=== PATIENT | female | born 1950 | race Caucasian/White ===

== ENCOUNTER 2016-05-12 14:01 | Emergency (ER) ==
[2016-05-12 14:10] VITALS: BP 112/84; TEMP 99.3; BMI 37.2
--- NOTE | 2016-05-12 14:58 | CT ---
EXAM: CT of the head without contrast History: Dizziness. Technique: Multiplanar CT images through the head were obtained without the administration of IV co ntrast Findings: The visualized paranasal sinuses and mastoid air cells are clear in general. No acute ca lvarial abnormalities. Incidental hyperostosis frontalis. Developmental nonfusion of the posterior arches C1. Tiny punctate calcification seen within the subcutaneous soft tissues of the right eyeli d. Intracranially the ventricular and cisternal spaces are normal in size, shape and configuration for a patient of this age. No dominant mass or midline shift. No hydrocephalous. No acute intracrania l hemorrhage or abnormal extraaxial fluid collections. Impression: No acute intracranial process.
--- NOTE | 2016-05-12 15:00 | DI ---
EXAM: Two views of the chest. History: Cough. Comparison: Chest radiograph 03/21/2016 Findings: Heart size is normal. No focal consolidation. No appreciable pleural fluid and no pneum othorax. Surgical clips are again seen within the left axilla. No acute osseous abnormalities. Impression: No acute cardiopulmonary process.
[2016-05-12 15:03] LABS: BASOPHILS # (AUTO) 0.1 K/uL (0-0.2); BASOPHILS % (AUTO) 0.9 % (0.0-3.0); EOSINOPHILS # (AUTO) 0.3 K/ul (0.0-0.7); EOSINOPHILS % (AUTO) 3.2 % (0.0-7.0); HEMATOCRIT 37.5 % (37.0-47.0); HEMOGLOBIN 12.3 g/dl (12.0-16.0); IMMATURE GRANULOCYTE % (AUTO) 0.9 % (0.0-5.0); LYMPHOCYTES # (AUTO) 2.5 K/uL (0.60-3.4); LYMPHOCYTES % (AUTO) 29.3 (10.0-50.0); MEAN CORPUSCULAR HEMOGLOBIN 30.1 pg (27.0-31.0); MEAN CORPUSCULAR HGB CONC 32.8 (31.8-35.4); MEAN CORPUSCULAR VOLUME 91.9 fl (81.0-99.0); MONOCYTES # (AUTO) 0.4 K/uL (0.4-2.0); NEUTROPHILS # (AUTO) 5.2 K/ul (2.0-6.9); NEUTROPHILS % (AUTO) 60.7; PLATELET COUNT 310 10^3/uL (140-440); RED BLOOD COUNT 4.08 10^6/ul (4.20-5.40); WHITE BLOOD COUNT 8.56 K/ul (4.6-10.2)
[2016-05-12 15:10] LABS: FLU INTERNAL QC INTERNAL QC VALID; RAPID FLU A NEGATIVE (NEGATIVE); RAPID FLU B NEGATIVE (NEGATIVE)
[2016-05-12] MEDS ORDERED: ANTIVERT PO STA (15:26)
[2016-05-12] MEDS ORDERED: DECADRON 4 MG/ML SDV IM STA (15:26)
[2016-05-12 15:45] LABS: ALANINE AMINOTRANSFERASE 22 U/L (12-78); ALBUMIN 3.8 g/dL (3.4-5.0); ALBUMIN/GLOBULIN RATIO 1.12; ALKALINE PHOSPHATASE 87 U/L (53-141); ANION GAP 18.6; ASPARTATE AMINO TRANSFERASE 17 U/L (15-37); BILIRUBIN,TOTAL 0.66 mg/dL (0.00-1.20); BLOOD UREA NITROGEN 27 mg/dL (7-18); BUN/CREATININE RATIO 30.68; CALCIUM 10.4 mg/dL (8.2-10.2); CARBON DIOXIDE 24 mmol/L (23-31); CHLORIDE 104 mmol/L (98-107); CREATINE KINASE 48 U/L; CREATININE 0.88 mg/dL (0.60-1.30); GLUCOSE 153 mg/dL (82-115); POTASSIUM 3.6 mmol/L (3.5-5.10); SODIUM 143 mmol/L (136-145); TOTAL PROTEIN 7.2 g/dL (5.8-8.1)
[2016-05-12 16:01] LABS: BILIRUBIN,URINE Negative (NEGATIVE); KETONES,URINE Negative (NEGATIVE); LEUKOCYTE ESTERASE ,URINE 1+ (NEGATIVE); NITRITE,URINE Negative (NEGATIVE); PROTEIN,URINE Negative (NEGATIVE); URINE, BLOOD Negative (NEGATIVE)
[2016-05-12 16:02] LABS: ADD URINE MICROSCOPIC YES; BACTERIA,URINE TRACE (NOT PRESENT)
--- NOTE | 2016-05-12 16:06 | ED.PDOC ---
General ED Provider: Dr. AVIS SILVEIRA Chief Complaint: Dizziness Stated Complaint: dizziness Time Seen by Physician: 14:04 (dizziness no neuro deficits ) Mode of Arrival: Wheelchair Information Source: Patient, Family Exam Limitations: No limitations Primary Care Provider: ZAY MOREJON Nursing and Triage Documentation Reviewed and Agree: Yes (PMD ALSO SAW PT IN E/ D PT WAS SEEN WITH SUSANNAH AT ALL TIMES ) Neurological Complaint Exam - Dizziness Complaint/Exam Last Known Well: 1 DAY Duration: 1 DAY Symptoms Are: Still present Timing: Constant Episodes Lasting: Hours Initial Severity: Mild Current Severity: Mild Character: Reports: Lightheaded, Dizzy Aggravating: Reports: None Alleviating: Reports: None Associated Signs and Symptoms: Denies: Nausea, Vomiting, Diaphoresis, Tinnitus, Chest pain, Short of air, Palpitations, Unsteady gait, GI blood loss, Visual changes, Decreased oral intake, Change in medication, Change in diet, OTC meds, Loss of balance Related History: Similar episode Cardiac Risk Factors: Reports: Hypertension, Diabetes CVA Risk Factors: Reports: Diabetes, Hypertension Related Surgical History: Reports: None JVD Present: No Carotid Bruit Present: No Rectal Heme Positive: No Glascow Coma Scale (see protocol): 15 Nystagmus Present: No Gag Reflex Present: Yes Meningeal Signs Positive: No Focal Weakness: Present: None Focal Sensory Loss: Present: None Gait: Normal Heel to Toe Normal: No [place]-Hallpike Test Positive: No Differential Diagnoses: Dysrhythmia, Hypovolemia, Metabolic abnormalities, Vasovagal reaction Quality Indicators for Cardiac Chest Pain: EKG in 10min. Quality Indicators for AMI: EKG in 10min. Quality Indicator For Non-Traumatic Chest Pain/Syncope: EKG Performed Review of Systems - Review Of Systems Constitutional: Reports: No symptoms Eyes: Reports: No symptoms Ears, Nose, Mouth, Throat: Reports: No symptoms Respiratory: Reports: No symptoms Cardiac: Reports: No symptoms GI: Reports: No symptoms : Reports: No symptoms Musculoskeletal: Reports: No symptoms Skin: Reports: No symptoms Neurological: Reports: Other (DIZZINESS) Endocrine: Reports: No symptoms Hematologic/Lymphatic: Reports: No symptoms All Other Systems: Reviewed and Negative Past Medical History - Past Medical History Previously Healthy: No Endocrine: Reports: DM 2 Cardiovascular: Reports: Hypertension Respiratory: Reports: None Hematological: Reports: None Gastrointestinal: Reports: None Genitourinary: Reports: None Neuro/Psych: Reports: None Musculoskeletal: Reports: None Cancer: Reports: None Last Menstrual Period: NA - Surgical History General Surgical History: Reports: None - Family History Family History: Reports: None - Social History Smoking Status: Never smoker Hx Substance Use: No Alcohol Screening: Occasionally Physical Exam - Physical Exam Appearance: Well-appearing, No pain distress, Well-nourished Eyes: ZACH, EOMI, Conjunctiva clear ENT: Ears normal, Nose normal, Oropharynx normal Respiratory: Airway patent, Breath sounds clear, Breath sounds equal, Respirations nonlabored Cardiovascular: RRR, Pulses normal, No rub, No murmur GI/: Soft, Nontender, No masses, Bowel sounds normal, No Organomegaly Musculoskeletal: Normal strength, ROM intact, No edema, No calf tenderness Skin: Warm, Dry, Normal color Neurological: Sensation intact, Motor intact, Reflexes intact, Cranial nerves intact, Alert, Oriented Psychiatric: Affect appropriate, Mood appropriate Critical Care Note - Critical Care Note Total Time (mins): 0 Course - Course Hematology/Chemistry: 05/12/16 14:50 05/12/16 14:50 Orders, Labs, Meds: Lab Review 05/12/16 05/12/16 14:50 15:55 WBC 8.56 RBC 4.08 L Hgb 12.3 Hct 37.5 MCV 91.9 MCH 30.1 MCHC 32.8 RDW Coeff of Annabelle 13.8 Plt Count 310 Immature Gran % (Auto) 0.9 Neut % (Auto) 60.7 Lymph % (Auto) 29.3 [place] % (Auto) 5.0 Eos % (Auto) 3.2 Baso % (Auto) 0.9 Immature Gran # (Auto) 0.1 Neut # 5.2 Lymph # 2.5 [place] # 0.4 Eos # 0.3 Baso # 0.1 D-Dimer 0.45 Sodium 143 Potassium 3.6 Chloride 104 Carbon Dioxide 24 Anion Gap 18.6 BUN 27 H Creatinine 0.88 Estimated GFR (MDRD) 64.00 BUN/Creatinine Ratio 30.68 Glucose 153 H Lactic Acid 17.8 Calcium 10.4 H Total Bilirubin 0.66 AST 17 ALT 22 Alkaline Phosphatase 87 Total Creatine Kinase 48 Troponin I < 0.0100 B-Natriuretic Peptide < 10 Total Protein 7.2 Albumin 3.8 Globulin 3.4 Albumin/Globulin Ratio 1.12 TSH 2.130 Free T4 1.01 Urine Color Yellow Urine Clarity Clear Urine pH 6.0 Ur Specific [place] 1.020 Urine Protein Negative Urine Glucose (UA) Negative Urine Ketones Negative Urine Blood Negative Urine Nitrite Negative Urine Bilirubin Negative Urine Urobilinogen 0.2 Ur Leukocyte Esterase 1+ Urine Microscopic WBC 0-2 Ur Squamous Epith Cells 0-2 Urine Bacteria Trace Influenza A (Rapid) Negative Influenza B (Rapid) Negative Orders Category Date Time Status EKG-(ED ONLY) Stat CARDIO 05/12/16 14:23 Completed B-TYPE NATRIURETIC PEPTIDE Stat LAB 05/12/16 14:50 Completed BLOOD CULTURE Stat LAB 05/12/16 14:50 Received CBC W/ AUTO DIFF Stat LAB 05/12/16 14:50 Completed COMPREHENSIVE METABOLIC PANEL Stat LAB 05/12/16 14:50 Completed CREATINE KINASE Stat LAB 05/12/16 14:50 Completed D-DIMER Stat LAB 05/12/16 14:50 Completed FREE T4 (FREE THYROXINE) Stat LAB 05/12/16 14:50 Completed LACTIC ACID Stat LAB 05/12/16 14:50 Completed RAPID FLU A/B Stat LAB 05/12/16 14:50 Completed THYROID STIMULATING HORMONE Stat LAB 05/12/16 14:50 Completed TROPONIN I Stat LAB 05/12/16 14:50 Completed URINALYSIS C & S IF INDICATED Stat LAB 05/12/16 15:55 Completed Dexamethasone 4 mg/ml Inj [Decadron 4 mg/ml Sdv] MEDS 05/12/16 15:26 Discontinued 4 mg IM ONCE STA Meclizine HCl [Antivert] MEDS 05/12/16 15:26 Discontinued 25 mg PO ONCE STA CHEST, 2 VIEWS PA & LAT Stat RADS 05/12/16 14:[address] HEAD W/O CONTRAST Stat RADS 05/12/16 14:31 Completed Medications Discontinued Medications Generic Name Dose Route Start Last Admin Trade Name Freq PRN Reason Stop Dose Admin Dexamethasone Sodium Phosphate 4 mg 05/12/16 15:26 05/12/16 15:33 Decadron 4 Mg/Ml Sdv IM 05/12/16 15:27 4 mg ONCE STA Administration Meclizine HCl 25 mg 05/12/16 15:26 05/12/16 15:33 Antivert PO 05/12/16 15:27 25 mg ONCE STA Administration Vital Signs: Temp Pulse Resp BP Pulse Ox 05/12/16 14:04 99.3 F 92 H 18 112/84 95 Departure - Departure Time of Disposition: 16:07 Disposition: HOME SELF-CARE Discharge Problem: Dizziness, Dizziness Instructions: Vertigo (ED), Benign Paroxysmal Positional Vertigo (ED), Lightheadedness (ED), Dizziness (ED) Condition: Good Pt referred to PMD for follow-up: Yes (PMD SAW PT IN E/D ) Allergies/Adverse Reactions: Allergies No Known Allergies Allergy (Unverified 05/12/16 14:03) Home Medications: Ambulatory Orders Albuterol Sulfate [Proair Hfa] 2 puff IH Q4H PRN 05/12/16 Budesonide/Formoterol Fumarate [Symbicort 160-4.5 Mcg Inhaler] 2 puff IH BID Diclofenac Sodium [Voltaren 1% Gel] 1 gm TP DAILY 05/12/16 Duloxetine HCl [Cymbalta] 60 mg PO BEDTIME 05/12/16 Hydrocodone Bit/Acetaminophen [Mcclure 5-325] 5 tab PO BID PRN 05/12/16 Ibuprofen 800 mg PO TID PRN 05/12/16 Levothyroxine Sodium [Levo-T] 25 mcg PO DAILY 05/12/16 Losartan Potassium [Cozaar] 25 mg PO DAILY 05/12/16 Metformin HCl 1,000 mg PO DAILY 05/12/16 Simvastatin 20 mg PO DAILY 05/12/16 Triamterene/Hydrochlorothiazid [Maxzide 37.5 mg-25 mg Tablet] 1 each PO DAILY Disposition Discussed With: Patient, Family
== END 2016-05-12 16:27 | disposition home or self-care (01) ==
LOC: ED 14:01
DX: R42 Dizziness and giddiness (principal); I10 Essential (primary) hypertension; E11.9 Type 2 diabetes mellitus without complications; Z79.899 Other long term (current) drug therapy
CPT/HCPCS: 36415; 80053; 81001; 82550; 83605; 83880; 84439; 84443; 84484; 85025; 85379; 87040; 87804; 93005; 93010; 96372; 99283

== ENCOUNTER 2016-06-07 11:16 | Outpatient (CLI) | payer OTHER ==
--- NOTE | 2016-06-07 14:18 | DI ---
EXAM: Lumbar spine five views HISTORY: Lumbar facet joint arthropathy. FINDINGS / IMPRESSION: No comparison. Subtle scoliosis convex right. Sacroiliac joints within normal limits. No pars defect. Moderately severe diffuse facet arthropathy. No loss of vertebral body height. No spondylolisthesis. Moderate degenerative disc disease L4-S1. No acute fracture.
== END 2016-06-07 11:17 | disposition home or self-care (01) ==
LOC: RAD 11:16
PROVIDERS: ATTEND Pain Medicine Interventional Pain Medicine
DX: M51.26 Other intervertebral disc displacement, lumbar region (principal); M47.816 Spondylosis without myelopathy or radiculopathy, lumbar region; M47.817 Spondylosis without myelopathy or radiculopathy, lumbosacral region; M48.06 Spinal stenosis, lumbar region; M51.36 Other intervertebral disc degeneration, lumbar region; M51.37 Other intervertebral disc degeneration, lumbosacral region

== ENCOUNTER 2016-08-16 09:00 | Outpatient (RCR) ==
--- NOTE | 2016-08-08 13:59 | RS.OPPTEV2 ---
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 Pain progressively worsenend until the need arose for shoulder surgery. She reports left shoulder will be needing surgery probably in a year. Prior Level of Function.....Patient was independent with: ADL's, Self Care, Caregiving, Ambulation/Mobility, Community Integration/Access Functional Limitations: Sleep, Self Care, ADL's, Reaching, Pushing, Pulling, Lifting, Carrying, Sitting, Bending, Squatting, Community Access/Integration Current Subjective/complaints:: Patient reports wearing her sling since surgery. She reports tingling and pain into the 5th digit and numbness in the 4th digit of the right hand since surgery. States she received Home Health PT up until a few days ago. States she is able to sleep in bed. She is taking pain medication, which helps. Also has iced the shoulder. States she would also like to get some exercise for the left shoulder since she will be having surgery on it eventually. Treatment Side (optional): Right Medical History Medical History Comments:: History of Carpal Tunnel syndrome in right wrist/hand Surgical History: Mastectomy (with complete lymph node removal, Left 2008) Surgical History Comments:: Left Breast reconstruction 2008 Smoking Status: Former smoker Hx Home Medications: Hydrocodone, cymbalta, metformin, synthroid, cozaar, zofran , zocor Patient's Goals: Her goal is to regain functional use of the right UE. Pain Assessment - Pain Description Pain Location: Right shoulder Pain Description: Aching Current Pain Intensity: 5/10 Worst Pain Intensity: 7/10 Functional Outcome Measure UE Functional Index: 14 (1480=82.5% impairment) - G Codes & Severity Modifier G Codes & Modifier: Selfcare current CM. Selfcare Goal CJ Source of G Code score: UE functional scale Observation - Observation Inspection: Patient presents to department with sling to right shoulder. Presents with one incision approximately 4 inches in length along the anterior region of the shoulder joint, that is free of sutures or megan. Patient states incision is glued. Posture: Forward Head, Rounded Shoulders Handedness: Right - Left Shoulder ROM Comments: Left AROM WFL's. - Right Shoulder ROM Comments: Passive right shoulder flexion to 100 degrees, scaption to 90 degrees , ER to 40 degrees. Right elbow and wrist AROM WFL's. - Right Shoulder Strength Comments: Right shoulder strength no tested at this time. Elbow 4/5, wrist 4/5. Boot And Shoe Repairman Strength Left Hand Boot And Shoe Repairman Strength: 45 lbs. Right Hand Boot And Shoe Repairman Strength: 22 lbs. Dynamometer Testing Position: 2nd Position Sensation - Sensation Comments: Patient reports tingling into the 5th digit in the right hand and numbness into the 4th digit. Interventions - Exercise/Activities/Manual Therapy Exercises/Activities: Patient received PROM in supine into right shoulder flexion, abduction, and ER in pain-free range. Performed Active right elbow and wrist ROM. Patient instructed in HEP of Pendulum exercises, scapular retraction, active elbow and wrist ROM. Total minutes of Exercise: X 18 mins Manual Therapy: NA HOME EXERCISE PROGRAM: Pendulum exercises, scapular retraction, active elbow and wrist ROM. - Charges Total Direct Minutes: 55 mins Total Treatment Time: 55 mins Procedures billed for this date of service:: Yudelka Eubanks Assessment Assessment: Patient presents two weeks s/p right Reverse TSR. She is right hand dominant and is unable to use the right UE for any selfcare or ADL's. She demonstrates limited Passive and Active ROM, post-surgical pain and swelling, and limited strength. She will benefit from appropriately progressed exercises and activities to enable her to regain functional use of the right UE. Patient Education: Education of diagnosis, Body/Joint mechanics, Home Exercise Program, Home Safety, Activity Modification, Education of Plan of Care Rehab Potential: Good Short Term Goals Goal #1: Pt independent and compliant with HEP. Goal to be met by: 08/22/16 Goal #2: Right shoulder PROM WFL's. Goal to be met by: 08/22/16 Goal #3: Pt to demonstrate improved postural awareness. Goal to be met by: 08/22/16 Clinical Physician Assistant Goals Goal #1: Pt knows HEP and to continue Ex's to maintain functional level at D/C. Goal to be met by: 10/07/16 Goal #2: Right shoulder AROM WFL's to perform all selfcare and ADL's. Goal to be met by: 10/07/16 Goal #3: Score on UE functional scale improved to <39% impairment. Goal to be met by: 10/07/16 Goal #4: Patient able to use Right UE for daily activities with minimal to no pain. Goal to be met by: 10/07/16 Plan - Treatment to be Provided Procedures: Therapeutic Exercises, Therapeutic Activity, Patient Education Modalities: Cryotherapy - Treatment Plan Frequency: 3 X week Duration: 8 weeks ORDER # VISITS AND/OR THROUGH DATE: 10/07/16 - Treatment Code (1) Shoulder pain Qualifiers: Laterality: right Chronicity: acute Qualified Description: Acute pain of right shoulder Qualifier Code(s): (M25.511) Pain in right shoulder (2) Shoulder stiffness Qualifiers: Laterality: right Qualified Description: Stiffness of shoulder joint, right Qualifier Code(s): (M25.611) Stiffness of right shoulder, not elsewhere classified (3) Aftercare following joint replacement surgery Qualifiers: Joint replacement surgery site: shoulder Laterality: right Qualified Description: Aftercare following right shoulder joint replacement surgery Qualifier Code(s): (Z47.1) Aftercare following joint replacement surgery, (Z96.611) Presence of right artificial shoulder joint
--- NOTE | 2016-08-12 09:56 | RS.CXNS ---
Date of scheduled appointment: 08/12/16 Type: Cancel (Patient called to cancel appointment today due to car trouble. Scheduled for appointments later this week.)
--- NOTE | 2016-08-14 10:55 | RS.OPPTDN ---
Subjective Date of Note: 08/14/16 Visit #: 2 Date of Evaluation: 08/08/16 Payer Source: MEDICARE Treatment Diagnosis: Right shoulder pain, right shoulder stiffness, s/p Right Reverse TSR Current Subjective/complaints:: Patient reports stiffness right shoulder but pain is "not too bad today". States she has mod to high back pain which is limiting her mobility. Pain Assessment - Pain Description Pain Location: Right shoulder Pain Description: Aching Current Pain Intensity: 3/10 - Heat/Cryotherapy Treatment: Hot Pack ([id number] to the right shoulder prior to EX. Patient in supine. ) Interventions - Exercise/Activities/Manual Therapy Exercises/Activities: [id number] Patient received PROM in supine into right shoulder flexion, scaption, abduction, and limited IR and ER in pain-free range. Isometrics for biceps, triceps, IR, ER, shoulder add and extension. Active right elbow and wrist ROM. Scapular retraction and elevation with support to right UE. In sitting, cervical lateral flexion stretching, scap retraction and shoulder shrugs. Codmans and began limited active flexion to start cuff series. Reviewed dx, shoulder mechancis, HEP, and safety precautions. Patient given copies of new exercises. Total minutes of Exercise: 40mins Manual Therapy: NA HOME EXERCISE PROGRAM: Pendulum exercises, scapular retraction, active elbow and wrist ROM. Isometric shoulder add and ext in neutral. - Charges Total Direct Minutes: 40mins Total Treatment Time: 60mins Procedures billed for this date of service:: HP, EX3 Assessment: Patient tolerates PROM and progressive exercises well. She appears motivated to progress. Patient Education: Education of diagnosis, Body/Joint mechanics, Home Exercise Program, Home Safety, Activity Modification Patient demonstrates compliance with HEP?: Yes Short Term Goals Goal #1: Pt independent and compliant with HEP. Goal to be met by: 08/22/16 Progress towards Goal:: Progressing Goal #2: Right shoulder PROM WFL's. Goal to be met by: 08/22/16 Progress towards Goal:: Progressing Goal #3: Pt to demonstrate improved postural awareness. Goal to be met by: 08/22/16 Snf Goals Goal #1: Pt knows HEP and to continue Ex's to maintain functional level at D/C. Goal to be met by: 10/07/16 Goal #2: Right shoulder AROM WFL's to perform all selfcare and ADL's. Goal to be met by: 10/07/16 Goal #3: Score on UE functional scale improved to <39% impairment. Goal to be met by: 10/07/16 Goal #4: Patient able to use Right UE for daily activities with minimal to no pain. Goal to be met by: 10/07/16 Plan PLAN OF CARE EXPIRES ON:: 10/07/16 ORDER # VISITS AND/OR THROUGH DATE: 10/07/16 PLAN: Continue Plan of Care
--- NOTE | 2016-08-16 12:07 | RS.OPPTDN ---
Subjective Date of Note: 08/16/16 Visit #: 3 Date of Evaluation: 08/08/16 Payer Source: MEDICARE Treatment Diagnosis: Right shoulder pain, right shoulder stiffness, s/p Right Reverse TSR Current Subjective/complaints:: Patient reports mild soreness following last session, but feels like ROM is better. Pain Assessment - Pain Description Pain Location: Right shoulder Pain Description: Aching Current Pain Intensity: 3/10 - Heat/Cryotherapy Treatment: Hot Pack ([id number] to right shoulder prior to EX. Patient in supine. ) Interventions - Exercise/Activities/Manual Therapy Exercises/Activities: [id number] Patient received PROM in supine into right shoulder flexion, scaption, abduction, and limited IR and ER in pain-free range. Isometrics for biceps, triceps, IR, ER, shoulder adduction, extension, and abduction. Active right elbow and wrist ROM. Scapular retraction and elevation with support to right UE. AAROM into flexion with clasped hands. Began wand for chest press, short range flexion, and IR/ER in supine. In sitting , scap retraction and shoulder shrugs. Reviwed Codmans and short cuff series. Reviewed dx, shoulder mechancis, HEP, and safety precautions. Patient given copies of new exercises. Total minutes of Exercise: 42mins Manual Therapy: NA HOME EXERCISE PROGRAM: Pendulum exercises, scapular retraction, active elbow and wrist ROM. Isometric shoulder add and ext in neutral. Wand for chest press , short overhead flexion, and IR/ER in supine. Clasped hands for shoulder flexion from 90 degrees to overhead in supine. - Charges Total Direct Minutes: 42mins Total Treatment Time: 62mins Procedures billed for this date of service:: HP, EX3 Assessment: Patient progressing well with ROM and gentle strengthening. Patient will need to be conservative with progression of exercise. Patient Education: Education of diagnosis, Body/Joint mechanics, Home Exercise Program, Home Safety, Activity Modification Patient demonstrates compliance with HEP?: Yes Short Term Goals Goal #1: Pt independent and compliant with HEP. Goal to be met by: 08/22/16 Progress towards Goal:: Progressing Goal #2: Right shoulder PROM WFL's. Goal to be met by: 08/22/16 Progress towards Goal:: Progressing Goal #3: Pt to demonstrate improved postural awareness. Goal to be met by: 08/22/16 Progress towards Goal:: Progressing Delivery Consultant Goals Goal #1: Pt knows HEP and to continue Ex's to maintain functional level at D/C. Goal to be met by: 10/07/16 Goal #2: Right shoulder AROM WFL's to perform all selfcare and ADL's. Goal to be met by: 10/07/16 Goal #3: Score on UE functional scale improved to <39% impairment. Goal to be met by: 10/07/16 Goal #4: Patient able to use Right UE for daily activities with minimal to no pain. Goal to be met by: 10/07/16 Plan PLAN OF CARE EXPIRES ON:: 10/07/16 ORDER # VISITS AND/OR THROUGH DATE: 10/07/16 PLAN: Continue Plan of Care
== END 2016-08-18 ==
PROVIDERS: ATTEND Orthopaedic Surgery
DX: M12.811 Other specific arthropathies, not elsewhere classified, right shoulder (principal)

== ENCOUNTER 2016-08-23 10:11 | Outpatient (CLI) ==
--- NOTE | 2016-08-23 10:58 | DI ---
EXAM: Radiographs, right knee HISTORY: Bilateral knee pain. COMPARISON: None available. TECHNIQUE: Two views. FINDINGS: Bone mineralization is normal. There is no fracture or dislocation. Mild medial compart ment joint space narrowing noted. Small marginal osteophytes present in the patellofemoral compartm ent. No focal soft tissue abnormality is seen. IMPRESSION: Mild osteoarthritis.
--- NOTE | 2016-08-23 10:58 | DI ---
EXAM: Two views of the left knee. History: Left knee pain. Findings: No acute fracture or dislocation. Joint spaces are relatively preserved. No abnormal ca lcifications or radiopaque foreign bodies. There is a tiny superior patellar osteophyte. Impression: No acute osseous abnormality and no significant degenerative joint disease.
== END 2016-08-23 10:12 | disposition home or self-care (01) ==
LOC: RAD 10:11
PROVIDERS: ATTEND Pain Medicine Interventional Pain Medicine
DX: M25.562 Pain in left knee (principal); M25.561 Pain in right knee; M12.811 Other specific arthropathies, not elsewhere classified, right shoulder

== ENCOUNTER 2016-09-09 10:28 | Outpatient (CLI) ==
[2016-09-09 11:04] LABS: BILIRUBIN,DIRECT 0.24 mg/dL (0.00-0.30); BILIRUBIN,TOTAL 0.7 mg/dL (0.00-1.20); TOTAL PROTEIN 7.1 g/dL (5.8-8.1)
[2016-09-11 08:31] LABS: ANION GAP 20.7; BUN/CREATININE RATIO 26.73; CALCIUM 10.2 mg/dL (8.2-10.2); CREATININE 1.01 mg/dL (0.60-1.30); POTASSIUM 3.7 mmol/L (3.5-5.10)
[2016-09-11 08:34] LABS: ALBUMIN 4.1 g/dL (3.4-5.0); ALBUMIN/GLOBULIN RATIO 1.37
== END 2016-09-09 10:29 | disposition home or self-care (01) ==
LOC: LAB 10:28
PROVIDERS: ATTEND Pain Medicine Interventional Pain Medicine
DX: Z51.81 Encounter for therapeutic drug level monitoring (principal); Z79.891 Long term (current) use of opiate analgesic; F19.20 Other psychoactive substance dependence, uncomplicated; M12.811 Other specific arthropathies, not elsewhere classified, right shoulder
CPT/HCPCS: 36415; 80053; 80076; 82248; 84100

== ENCOUNTER 2016-09-17 09:00 | Outpatient (RCR) ==
--- NOTE | 2016-08-20 11:25 | RS.OPPTDN ---
Subjective Date of Note: 08/20/16 Visit #: 4 Date of Evaluation: 08/08/16 Payer Source: MEDICARE Treatment Diagnosis: Right shoulder pain, right shoulder stiffness, s/p Right Reverse TSR Current Subjective/complaints:: Patient reports she feels she is progressing with HEP and has improved strength slightly with isometric IR of right shoulder. Reports using right UE to assist with limited grooming. Pain Assessment - Pain Description Pain Location: Right shoulder Current Pain Intensity: 3/10 - Heat/Cryotherapy Treatment: Hot Pack ([id number] to the right shoulder prior to EX. Patient in supine. ) Interventions - Exercise/Activities/Manual Therapy Exercises/Activities: [id number] Patient received PROM in supine into right shoulder flexion, scaption, abduction, and limited IR and ER in pain-free range. Isometrics for biceps, triceps, IR, ER, shoulder flexion, adduction, extension, and abduction. Active right elbow and wrist ROM. AAROM into flexion with clasped hands. Increased to 3# wand for chest press. Light wand for short range flexion, ER with shoulders at 90degrees with support to right UE, and IR/ ER with arms at side, all in supine. In sitting, scap retraction and shoulder shrugs. Began UE slides for forward flexion and short horizontal abd. Codmans and advanced AROM with cuff series. Reviewed dx, shoulder mechancis, HEP, and safety precautions. Patient given copies of new exercises added today. Total minutes of Exercise: 45mins Manual Therapy: NA HOME EXERCISE PROGRAM: Pendulum exercises, scapular retraction, active elbow and wrist ROM. Isometric shoulder add and ext in neutral. Wand for chest press , short overhead flexion, and IR/ER in supine. Clasped hands for shoulder flexion from 90 degrees to overhead in supine. - Charges Total Direct Minutes: 45mins Total Treatment Time: 65mins Procedures billed for this date of service:: HP, EX3 Assessment: Patient continues to progress with exercise. Patient Education: Education of diagnosis, Body/Joint mechanics, Home Exercise Program, Home Safety Patient demonstrates compliance with HEP?: Yes Short Term Goals Goal #1: Pt independent and compliant with HEP. Goal to be met by: 08/22/16 Progress towards Goal:: Progressing Goal #2: Right shoulder PROM WFL's. Goal to be met by: 08/22/16 Progress towards Goal:: Progressing Goal #3: Pt to demonstrate improved postural awareness. Goal to be met by: 08/22/16 Progress towards Goal:: Progressing Fdc Goals Goal #1: Pt knows HEP and to continue Ex's to maintain functional level at D/C. Goal to be met by: 10/07/16 Progress towards goal: Progressing Goal #2: Right shoulder AROM WFL's to perform all selfcare and ADL's. Goal to be met by: 10/07/16 Progress towards goal: Progressing Goal #3: Score on UE functional scale improved to <39% impairment. Goal to be met by: 10/07/16 Goal #4: Patient able to use Right UE for daily activities with minimal to no pain. Goal to be met by: 10/07/16 Plan PLAN OF CARE EXPIRES ON:: 10/07/16 ORDER # VISITS AND/OR THROUGH DATE: 10/07/16 PLAN: Continue Plan of Care
--- NOTE | 2016-08-21 15:19 | RS.OPPTDN ---
Subjective Date of Note: 08/21/16 Visit #: 5 Date of Evaluation: 08/08/16 Payer Source: MEDICARE Treatment Diagnosis: Right shoulder pain, right shoulder stiffness, s/p Right Reverse TSR Current Subjective/complaints:: Patient reports she is progressing well with HEP. Continues to report pain with short ER during PROM. Pain Assessment - Pain Description Pain Location: Right shoulder Current Pain Intensity: 3/10 - Heat/Cryotherapy Treatment: Hot Pack ([id number] to the right shoulder prior to EX. Patient in supine. ) Interventions - Exercise/Activities/Manual Therapy Exercises/Activities: [id number] Patient received PROM in supine into right shoulder flexion, scaption, abduction, and limited IR and ER in pain-free range. Isometrics for biceps, triceps, IR, ER, shoulder flexion, adduction, extension, and abduction. Active right elbow and wrist ROM. 3# wand for chest press. Light wand for short range flexion, ER with shoulders at 90degrees with support to right UE, and flexion from lap to 90 degrees, all in supine. In sitting, scap retraction and shoulder shrugs. Codmans and added 1# to cuff series. Red theraband for scapular retraction, 2s/15reps. Patient given copies of new exercises added today. Total minutes of Exercise: 45mins Manual Therapy: NA HOME EXERCISE PROGRAM: Pendulum exercises, scapular retraction, active elbow and wrist ROM. Isometric shoulder add and ext in neutral. Wand for chest press , short overhead flexion, and IR/ER in supine. Clasped hands for shoulder flexion from 90 degrees to overhead in supine. - Charges Total Direct Minutes: 45mins Total Treatment Time: 65mins Procedures billed for this date of service:: HP, EX3 Assessment: Patient progressing well with active and light resistve exercises. Patient Education: Education of diagnosis, Body/Joint mechanics, Home Exercise Program Patient demonstrates compliance with HEP?: Yes Short Term Goals Goal #1: Pt independent and compliant with HEP. Goal to be met by: 08/22/16 Progress towards Goal:: Progressing Goal #2: Right shoulder PROM WFL's. Goal to be met by: 08/22/16 Progress towards Goal:: Progressing Goal #3: Pt to demonstrate improved postural awareness. 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 Goal to be met by: 10/07/16 Progress towards goal: Progressing Goal #2: Right shoulder AROM WFL's to perform all selfcare and ADL's. Goal to be met by: 10/07/16 Progress towards goal: Progressing Goal #3: Score on UE functional scale improved to <39% impairment. Goal to be met by: 10/07/16 Goal #4: Patient able to use Right UE for daily activities with minimal to no pain. Goal to be met by: 10/07/16 Plan PLAN OF CARE EXPIRES ON:: 10/07/16 ORDER # VISITS AND/OR THROUGH DATE: 10/07/16 PLAN: Continue Plan of Care
--- NOTE | 2016-08-23 12:13 | RS.OPPTDN ---
Subjective Date of Note: 08/23/16 Visit #: 6 Date of Evaluation: 08/08/16 Payer Source: MEDICARE Treatment Diagnosis: Right shoulder pain, right shoulder stiffness, s/p Right Reverse TSR Current Subjective/complaints:: Patient reports continued improvement in right shoulder ROM and ability with HEP. Pain Assessment - Pain Description Pain Location: Right shoulder Current Pain Intensity: 3/10 - Heat/Cryotherapy Treatment: Hot Pack ([id number] to the right shoulder prior to EX. Patient in supine. ) Interventions - Exercise/Activities/Manual Therapy Exercises/Activities: [id number] Patient received PROM in supine into right shoulder flexion, scaption, abduction, and limited IR and ER in pain-free range. Isometrics for biceps, triceps, IR, ER, shoulder flexion, adduction, extension, and abduction. Active right elbow and wrist ROM. 3# wand for chest press, and full flexion, multiple reps. Isometric ball squeeze between hand at different positions and with short range flexion. In sitting, scap retraction and shoulder shrugs. Red theraband for scapular retraction, 2s/15reps. Yellow theraband in standing for short range right shoulder IR, ER, flex, ext, add, and abd. Patient given copies of new exercises added today. Total minutes of Exercise: 45mins Manual Therapy: NA HOME EXERCISE PROGRAM: Pendulum exercises, scapular retraction, active elbow and wrist ROM. Isometric shoulder add and ext in neutral. Wand for chest press , short overhead flexion, and IR/ER in supine. Clasped hands for shoulder flexion from 90 degrees to overhead in supine. - Objective Findings Observations,measurements,etc.: Passive right shoulder flexion 148 degrees. - Charges Total Direct Minutes: 45mins Total Treatment Time: 65mins Procedures billed for this date of service:: HP, EX3 Assessment: Patient progressing well with ROM and exercise. Patient Education: Body/Joint mechanics, Home Exercise Program, Home Safety, Activity Modification Patient demonstrates compliance with HEP?: Yes Short Term Goals Goal #1: Pt independent and compliant with HEP. Goal to be met by: 08/22/16 Progress towards Goal:: Progressing Goal #2: Right shoulder PROM WFL's. Goal to be met by: 08/22/16 Progress towards Goal:: Progressing Goal #3: Pt to demonstrate improved postural awareness. 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 Goal to be met by: 10/07/16 Progress towards goal: Progressing Goal #2: Right shoulder AROM WFL's to perform all selfcare and ADL's. Goal to be met by: 10/07/16 Progress towards goal: Progressing Goal #3: Score on UE functional scale improved to <39% impairment. Goal to be met by: 10/07/16 Goal #4: Patient able to use Right UE for daily activities with minimal to no pain. Goal to be met by: 10/07/16 Plan PLAN OF CARE EXPIRES ON:: 10/07/16 ORDER # VISITS AND/OR THROUGH DATE: 10/07/16 PLAN: Progress Exercises
--- NOTE | 2016-08-26 16:09 | RS.OPPTDN ---
Subjective Date of Note: 08/26/16 Visit #: 7 Date of Evaluation: 08/08/16 Payer Source: MEDICARE Treatment Diagnosis: Right shoulder pain, right shoulder stiffness, s/p Right Reverse TSR Current Subjective/complaints:: Patient reports she worked on HEP consistently over the weekend and feels like her strength is improving. Pain Assessment - Pain Description Pain Location: Right shoulder Current Pain Intensity: 3/10 - Heat/Cryotherapy Treatment: Hot Pack ([id number] to the right shoulder prior to EX. Patient in supine. ) Interventions - Exercise/Activities/Manual Therapy Exercises/Activities: [id number] Patient received PROM in supine into right shoulder flexion, scaption, abduction, and limited IR and ER in pain-free range. Isometrics for biceps, triceps, IR, ER, shoulder flexion, adduction, extension, and abduction. Active right elbow and wrist ROM. 3# wand for chest press and short range flexion. Squeezing ball between hands with arms at side, and at approx 90 degrees flexion. Began yellow theraband for resisted flex, ext , horz add and horz abd, all short range. In sitting, scap retraction and shoulder shrugs. Yellow theraband for scap retraction and bilateral ER. Codmans 1# dumbell. Total minutes of Exercise: 40mins Manual Therapy: NA HOME EXERCISE PROGRAM: Pendulum exercises, scapular retraction, active elbow and wrist ROM. Isometric shoulder add and ext in neutral. Wand for chest press , short overhead flexion, and IR/ER in supine. Clasped hands for shoulder flexion from 90 degrees to overhead in supine. - Charges Total Direct Minutes: 40mins Total Treatment Time: 60mins Procedures billed for this date of service:: HP, EX3 Assessment: Patient progressing with AAROM and with light resistive exercise. Patient Education: Body/Joint mechanics, Home Exercise Program, Home Safety, Activity Modification Patient demonstrates compliance with HEP?: Yes Short Term Goals Goal #1: Pt independent and compliant with HEP. Goal to be met by: 08/22/16 (100%) Progress towards Goal:: Met Comments:: Independent with basic HEP. Goal #2: Right shoulder PROM WFL's. Goal to be met by: 08/22/16 Progress towards Goal:: Progressing Goal #3: Pt to demonstrate improved postural awareness. Goal to be met by: 08/22/16 Progress towards Goal:: Progressing Usp Goals Goal #1: Pt knows HEP and to continue Ex's to maintain functional level at D/C. Goal to be met by: 10/07/16 Progress towards goal: Progressing Goal #2: Right shoulder AROM WFL's to perform all selfcare and ADL's. Goal to be met by: 10/07/16 Progress towards goal: Progressing Goal #3: Score on UE functional scale improved to <39% impairment. Goal to be met by: 10/07/16 Goal #4: Patient able to use Right UE for daily activities with minimal to no pain. Goal to be met by: 10/07/16 Plan PLAN OF CARE EXPIRES ON:: 10/07/16 ORDER # VISITS AND/OR THROUGH DATE: 10/07/16 PLAN: Continue Plan of Care
--- NOTE | 2016-08-28 15:42 | RS.OPPTDN ---
Subjective Date of Note: 08/28/16 Visit #: 8 Date of Evaluation: 08/08/16 Payer Source: MEDICARE Treatment Diagnosis: Right shoulder pain, right shoulder stiffness, s/p Right Reverse TSR Current Subjective/complaints:: Patient states her arm is not hurting as badly today, but this is due to less activity. She says she has been seeing improvement with shoulder flexion at home and with use of cane for overhead flexion. She says what hurts her the most is ABD and ER. Pain Assessment - Pain Description Pain Location: Right shoulder Current Pain Intensity: 06/28 - Heat/Cryotherapy Treatment: Hot Pack (20 mins to R shoulder in supine) Interventions - Exercise/Activities/Manual Therapy Exercises/Activities: [id number] Patient received PROM in supine into right shoulder flexion, scaption, abduction, and limited IR and ER in pain-free range. Isometrics for biceps, triceps, IR, ER, shoulder flexion, adduction, extension, and abduction. Active right elbow and wrist ROM. 3# wand for chest press and short range flexion. Squeezing ball between hands with arms at side, and at approx 90 degrees flexion. Began yellow theraband for resisted flex, ext , horz add and horz abd, all short range. In sitting, scap retraction and shoulder shrugs. Yellow theraband for scap retraction and bilateral ER. Codmans 1# dumbell. Manual Therapy: NA HOME EXERCISE PROGRAM: Pendulum exercises, scapular retraction, active elbow and wrist ROM. Isometric shoulder add and ext in neutral. Wand for chest press , short overhead flexion, and IR/ER in supine. Clasped hands for shoulder flexion from 90 degrees to overhead in supine. - Charges Total Direct Minutes: 40 Total Treatment Time: 60 Procedures billed for this date of service:: hp, ex3 Assessment: Patient continues to siena increased progressed therex with c/o's only with passive abd today. Patient Education: Education of diagnosis, Body/Joint mechanics, Home Exercise Program, Home Safety, Activity Modification, Education of Plan of Care Patient demonstrates compliance with HEP?: Yes Short Term Goals Goal #1: Pt independent and compliant with HEP. Goal to be met by: 08/22/16 (100%) Progress towards Goal:: Met Goal #2: Right shoulder PROM WFL's. Goal to be met by: 08/22/16 Progress towards Goal:: Progressing Goal #3: Pt to demonstrate improved postural awareness. 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 Goal to be met by: 10/07/16 Progress towards goal: Progressing Goal #2: Right shoulder AROM WFL's to perform all selfcare and ADL's. Goal to be met by: 10/07/16 Progress towards goal: Progressing Goal #3: Score on UE functional scale improved to <39% impairment. Goal to be met by: 10/07/16 Goal #4: Patient able to use Right UE for daily activities with minimal to no pain. Goal to be met by: 10/07/16 Plan PLAN OF CARE EXPIRES ON:: 10/07/16 ORDER # VISITS AND/OR THROUGH DATE: 10/07/16 PLAN: Progress Exercises
--- NOTE | 2016-08-30 09:53 | RS.OPPTDN ---
Subjective Date of Note: 08/30/16 Date of Evaluation: 08/08/16 Payer Source: MEDICARE Treatment Diagnosis: Right shoulder pain, right shoulder stiffness, s/p Right Reverse TSR Current Subjective/complaints:: Patient says she is achey all over today due to damp weather. She denies no increase in shoulder pain since her last session. Pain Assessment - Pain Description Pain Location: Right shoulder Pain Description: Aching Current Pain Intensity: 3/10 - Heat/Cryotherapy Treatment: Hot Pack (20 mins to the R shoulder in supine) Interventions - Exercise/Activities/Manual Therapy Exercises/Activities: [id number] Patient received PROM in supine into right shoulder flexion, scaption, abduction, and limited IR and ER in pain-free range. Isometrics for biceps, triceps, IR, ER, shoulder flexion, adduction, extension, and abduction. Active right elbow and wrist ROM. 3# wand for chest press and short range flexion. Squeezing ball between hands with arms at side, and at approx 90 degrees flexion. Began yellow theraband for resisted flex, ext , horz add and horz abd, all short range. In sitting, scap retraction and shoulder shrugs. Yellow theraband for scap retraction and bilateral ER. Codmans 1# dumbell. 1# dumbell for elbow and wrist motions x 10. Manual Therapy: NA HOME EXERCISE PROGRAM: Pendulum exercises, scapular retraction, active elbow and wrist ROM. Isometric shoulder add and ext in neutral. Wand for chest press , short overhead flexion, and IR/ER in supine. Clasped hands for shoulder flexion from 90 degrees to overhead in supine. - Charges Total Direct Minutes: 40 Total Treatment Time: 60 Procedures billed for this date of service:: hp, ex3 Assessment: Patient siena increased ABD today even though she admitted increased ache due to weather. She is consistent with HEP at this time and should continue to do well with progressive therex. Patient Education: Education of diagnosis, Body/Joint mechanics, Home Exercise Program, Home Safety, Activity Modification, Education of Plan of Care Patient demonstrates compliance with HEP?: Yes Short Term Goals Goal #1: Pt independent and compliant with HEP. Goal to be met by: 08/22/16 (100%) Progress towards Goal:: Met Goal #2: Right shoulder PROM WFL's. Goal to be met by: 08/22/16 Progress towards Goal:: Progressing Goal #3: Pt to demonstrate improved postural awareness. Goal to be met by: 08/22/16 Progress towards Goal:: Progressing Usp Goals Goal #1: Pt knows HEP and to continue Ex's to maintain functional level at D/C. Goal to be met by: 10/07/16 Progress towards goal: Progressing Goal #2: Right shoulder AROM WFL's to perform all selfcare and ADL's. Goal to be met by: 10/07/16 Progress towards goal: Progressing Goal #3: Score on UE functional scale improved to <39% impairment. Goal to be met by: 10/07/16 Goal #4: Patient able to use Right UE for daily activities with minimal to no pain. Goal to be met by: 10/07/16 Plan PLAN OF CARE EXPIRES ON:: 10/07/16 ORDER # VISITS AND/OR THROUGH DATE: 10/07/16 PLAN: Progress Exercises
--- NOTE | 2016-09-03 09:57 | RS.PTSUM ---
Progress Note/Summary Date of Note: 09/02/16 Date of Evaluation: 08/08/16 Number of Visits: 10 Reporting Period for this Progress Note: 08/08/16 through 09/02/16q Current Complaints/Gains: Patient reports improved ROM. States she sees her surgeon this week. States she is still very weak. Reports trying to cut a steak on her plate using the right UE. States she could not do it with the right UE. Continues to be unable to use the right UE for functional reaching. Objective Measurements/Presentation: Patient receives moist heat to the right shoulder prior to exercises. Patient received PROM in supine into right shoulder flexion, scaption, abduction, and limited IR and ER in pain-free range. Isometrics for biceps, triceps, IR, ER, shoulder flexion, adduction, extension, and abduction. 3# wand for chest press and short range flexion. Squeezing ball between hands with arms at side, and at approx 90 degrees flexion. Began yellow theraband for resisted flex, ext, horz add and horz abd, all short range. Codmans 1# dumbell. Patient demonstrates approximately 130- 140 degrees of Passive and AAROM into flexion, 130 degrees scaption, ER to 50 degrees. Strength in her available range is 3+ to 4-/5. Charges for today: HP , EX2 Total time with exercises 36 mins. G Codes: selfcare current CK. selfcare goal CJ Source of G Code Score: UE functional scale 45/80=43.75% limitation - Short Term Goals Goal #1: Pt independent and compliant with HEP. Goal to be met by: 08/22/16 (100%) Progress towards Goal:: Met Goal #2: Right shoulder PROM WFL's. Goal to be met by: 08/22/16 Progress towards Goal:: Progressing Goal #3: Pt to demonstrate improved postural awareness. 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 Goal to be met by: 10/07/16 Progress towards goal: Progressing Goal #2: Right shoulder AROM WFL's to perform all selfcare and ADL's. Goal to be met by: 10/07/16 Progress towards goal: Progressing Goal #3: Score on UE functional scale improved to <39% impairment. Goal to be met by: 10/07/16 Progress towards goal: Progressing Goal #4: Patient able to use Right UE for daily activities with minimal to no pain. Goal to be met by: 10/07/16 Progress towards goal: Progressing - Assessment Assessment of Improvement/Progress: Ms. Yee has made gains in passive and AAROM of the right shoulder. She shows an improvement in her score on the UE functional scale from 14/80 at evaluation to 45/80 today. She continues to be limited with use of the right UE for selfcare and ADL's. The right UE is her dominant arm and she needs further ROM and strengthening to return to her prior level of function and level of independence. Summary: Patient demonstrates potential to gain increased function with therapy - Plan Plan: Continue Plan of Care PLAN OF CARE EXPIRES ON:: 10/07/16 ORDER # VISITS AND/OR THROUGH DATE: 10/07/16
--- NOTE | 2016-09-03 14:03 | RS.OPPTDN ---
Subjective Date of Note: 09/03/16 Visit #: 11 Date of Evaluation: 08/08/16 Payer Source: MEDICARE Treatment Diagnosis: Right shoulder pain, right shoulder stiffness, s/p Right Reverse TSR Current Subjective/complaints:: Patient reports continued improvement in right UE. Pain Assessment - Pain Description Pain Location: Right shoulder Pain Description: Aching Current Pain Intensity: 3/10 - Heat/Cryotherapy Treatment: Hot Pack ([id number] to the right shoulder prior to EX. Patient in supine. ) Interventions - Exercise/Activities/Manual Therapy Exercises/Activities: [id number] Patient received PROM in supine into right shoulder flexion, scaption, abduction, and limited IR and ER in pain-free range. Isometrics for biceps, triceps, IR, ER, shoulder flexion, adduction, extension, and abduction. Active right elbow and wrist ROM. Increased to 6# wand for chest press and short range flexion. Squeezing ball between hands with arms at side, and at approx 90 degrees flexion. Increased to red theraband for resisted ext, press, biceps, and triceps. In sitting, red theraband for forward press and scap retraction. Active and AAROM of the right shoulder. Total minutes of Exercise: 40mins Manual Therapy: NA HOME EXERCISE PROGRAM: Pendulum exercises, scapular retraction, active elbow and wrist ROM. Isometric shoulder add and ext in neutral. Wand for chest press , short overhead flexion, and IR/ER in supine. Clasped hands for shoulder flexion from 90 degrees to overhead in supine. - Objective Findings Observations,measurements,etc.: Active right shoulder 110 degrees and active assisted flexion to 118 degrees. - Charges Total Direct Minutes: 40mins Total Treatment Time: 60mins Procedures billed for this date of service:: HP, EX3 Assessment: Patient continues to progress with strengthening and with right shoulder ROM. Patient Education: Home Exercise Program Patient demonstrates compliance with HEP?: Yes Short Term Goals Goal #1: Pt independent and compliant with HEP. Goal to be met by: 08/22/16 (100%) Progress towards Goal:: Met Goal #2: Right shoulder PROM WFL's. Goal to be met by: 08/22/16 Progress towards Goal:: Progressing Goal #3: Pt to demonstrate improved postural awareness. 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 Goal to be met by: 10/07/16 Progress towards goal: Progressing Goal #2: Right shoulder AROM WFL's to perform all selfcare and ADL's. Goal to be met by: 10/07/16 Progress towards goal: Progressing Goal #3: Score on UE functional scale improved to <39% impairment. Goal to be met by: 10/07/16 Progress towards goal: Progressing Goal #4: Patient able to use Right UE for daily activities with minimal to no pain. Goal to be met by: 10/07/16 Progress towards goal: Progressing Plan PLAN OF CARE EXPIRES ON:: 10/07/16 ORDER # VISITS AND/OR THROUGH DATE: 10/07/16 PLAN: Continue Plan of Care
--- NOTE | 2016-09-04 10:51 | RS.OPPTDN ---
Subjective Date of Note: 09/04/16 Visit #: 12 Date of Evaluation: 08/08/16 Payer Source: MEDICARE Treatment Diagnosis: Right shoulder pain, right shoulder stiffness, s/p Right Reverse TSR Current Subjective/complaints:: Patient reports increased soreness after increasing exercises last session, but feels she is doing well today. States she is able to reach the back of her head when fixing her hair now. She is pleased with progress and ability to perform active reaching above shoulder height. Pain Assessment - Pain Description Pain Location: Right shoulder Pain Description: Aching Current Pain Intensity: 2-3/10 - Heat/Cryotherapy Treatment: Hot Pack ([id number] to the right shoulder prior to EX. Patient in supine. ) Interventions - Exercise/Activities/Manual Therapy Exercises/Activities: [id number] Patient received PROM in supine into right shoulder flexion, scaption, abduction, and limited IR and ER in pain-free range. Isometrics for biceps, triceps, IR, ER, shoulder flexion, adduction, extension, and abduction. Active right elbow and wrist ROM. 6# wand for chest press and short range flexion. Squeezing ball between hands with arms at side, and at approx 90 degrees flexion. Yellow theraband for resisted flex, ext, press , IR, biceps, and triceps. Yellow theraband for bilateral shoulder ER. In sitting, yellow theraband for forward press and scap retraction. Active and AAROM of the right shoulder. Assisted shoulder flex, scap, abd then eccentric movement back to resting position. Ball on the wall. Total minutes of Exercise: 40mins Manual Therapy: NA HOME EXERCISE PROGRAM: Pendulum exercises, scapular retraction, active elbow and wrist ROM. Isometric shoulder add and ext in neutral. Wand for chest press , short overhead flexion, and IR/ER in supine. Clasped hands for shoulder flexion from 90 degrees to overhead in supine. Ball on the wall. - Objective Findings Observations,measurements,etc.: Active right shoulder flexion to 110 degrees and active assist flexion to 118 degrees. Measurements taken at end of exercise session. PROM continues to be WFL's with exception of ER which is limited to 35 degrees at best in a neutral position. - Charges Total Direct Minutes: 40mins Total Treatment Time: 60mins Procedures billed for this date of service:: HP, EX3 Assessment: Patient progressing well with gentle strengthening and with AROM exercises. Patient Education: Home Exercise Program Patient demonstrates compliance with HEP?: Yes Short Term Goals Goal #1: Pt independent and compliant with HEP. Goal to be met by: 08/22/16 (100%) Progress towards Goal:: Met Goal #2: Right shoulder PROM WFL's. Goal to be met by: 08/22/16 (80%) Progress towards Goal:: Progressing Goal #3: Pt to demonstrate improved postural awareness. 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 Goal to be met by: 10/07/16 Progress towards goal: Progressing Goal #2: Right shoulder AROM WFL's to perform all selfcare and ADL's. Goal to be met by: 10/07/16 Progress towards goal: Progressing Goal #3: Score on UE functional scale improved to <39% impairment. Goal to be met by: 10/07/16 Progress towards goal: Progressing Goal #4: Patient able to use Right UE for daily activities with minimal to no pain. Goal to be met by: 10/07/16 Progress towards goal: Progressing Plan PLAN OF CARE EXPIRES ON:: 10/07/16 ORDER # VISITS AND/OR THROUGH DATE: 10/07/16 PLAN: Continue Plan of Care (Patient to see physician this week for follow-up. Will plan to continue current POC with current orders.)
--- NOTE | 2016-09-09 15:29 | RS.OPPTDN ---
Subjective Date of Note: 09/09/16 Visit #: 13 Date of Evaluation: 08/08/16 Payer Source: MEDICARE Treatment Diagnosis: Right shoulder pain, right shoulder stiffness, s/p Right Reverse TSR Current Subjective/complaints:: Patient reports she went for follow-up with physician and he was pleased with her progress. Reports she continues to be limited with rotation but is progressing well with active flexion and abduction. Pain Assessment - Pain Description Pain Location: Right shoulder Pain Description: Aching Current Pain Intensity: 2-3/10 - Heat/Cryotherapy Treatment: Hot Pack ([id number] to the right shoulder prior to EX. Patient in sitting. ) Interventions - Exercise/Activities/Manual Therapy Exercises/Activities: [id number] Patient received PROM in supine into right shoulder flexion, scaption, abduction, and limited IR and ER in pain-free range. Isometrics for biceps, triceps, IR, ER, shoulder flexion, adduction, extension, and abduction. Active right elbow and wrist ROM. In sitting, 3# wand for shoulder flexion. Squeezing ball between hands with arms at side, and flexion to approx 90 degrees flexion. Red theraband for resisted flex, ext, press, IR, biceps, and triceps. Red theraband for bilateral shoulder ER. Active and AAROM of the right shoulder. Assisted shoulder flex, scap, abd then eccentric movement back to resting position. Ball on the wall. Total minutes of Exercise: 40mins Manual Therapy: NA HOME EXERCISE PROGRAM: Pendulum exercises, scapular retraction, active elbow and wrist ROM. Isometric shoulder add and ext in neutral. Wand for chest press , short overhead flexion, and IR/ER in supine. Clasped hands for shoulder flexion from 90 degrees to overhead in supine. Ball on the wall. - Charges Total Direct Minutes: 40mins Total Treatment Time: 60mins Procedures billed for this date of service:: HP, EX3 Assessment: Patient progressing well with strengthening. Will need to work on strengthening to increase functional activity level. Patient Education: Home Exercise Program, Home Safety, Activity Modification Patient demonstrates compliance with HEP?: Yes Short Term Goals Goal #1: Pt independent and compliant with HEP. Goal to be met by: 08/22/16 (100%) Progress towards Goal:: Met Goal #2: Right shoulder PROM WFL's. Goal to be met by: 08/22/16 (80%) Progress towards Goal:: Progressing Goal #3: Pt to demonstrate improved postural awareness. 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 Goal to be met by: 10/07/16 Progress towards goal: Progressing Goal #2: Right shoulder AROM WFL's to perform all selfcare and ADL's. Goal to be met by: 10/07/16 Progress towards goal: Progressing Goal #3: Score on UE functional scale improved to <39% impairment. Goal to be met by: 10/07/16 Progress towards goal: Progressing Goal #4: Patient able to use Right UE for daily activities with minimal to no pain. Goal to be met by: 10/07/16 Progress towards goal: Progressing Plan PLAN OF CARE EXPIRES ON:: 10/07/16 ORDER # VISITS AND/OR THROUGH DATE: 10/07/16 PLAN: Continue Plan of Care
--- NOTE | 2016-09-11 11:19 | RS.OPPTDN ---
Subjective Date of Note: 09/11/16 Visit #: 14 Date of Evaluation: 08/08/16 Payer Source: MEDICARE Treatment Diagnosis: Right shoulder pain, right shoulder stiffness, s/p Right Reverse TSR Current Subjective/complaints:: Patient reports continued progress with reaching above shoulder height. Pain Assessment - Pain Description Pain Location: Right shoulder Pain Description: Aching Current Pain Intensity: mild - Heat/Cryotherapy Treatment: Hot Pack ([id number] to the right shoulder prior to EX. patient in supine. ) Interventions - Exercise/Activities/Manual Therapy Exercises/Activities: [id number] Patient received PROM in supine into right shoulder flexion, scaption, abduction, and limited IR and ER in pain-free range. Isometrics for biceps, triceps, IR, ER, shoulder flexion, adduction, extension, and abduction. 3# wand for chest press, overhead flexion, and shoulder flexion from lap to 90degrees. Ball squeeze with arms at side and through ROM. In sitting, 3# wand for shoulder flexion. Squeezing ball between hands with arms at side, and flexion to approx 90 degrees flexion. Active and AAROM of the right shoulder. Assisted shoulder flex, scap, abd then eccentric movement back to resting position. 2# dumbell for flexion to 90 degrees. 1# dumbell for flexion, scaption, abduction, and "empty can", all 3s/5reps. Ball on the wall. Total minutes of Exercise: 40mins Manual Therapy: NA HOME EXERCISE PROGRAM: Pendulum exercises, scapular retraction, active elbow and wrist ROM. Isometric shoulder add and ext in neutral. Wand for chest press , short overhead flexion, and IR/ER in supine. Clasped hands for shoulder flexion from 90 degrees to overhead in supine. Ball on the wall. - Charges Total Direct Minutes: 40mins Total Treatment Time: 60mins Procedures billed for this date of service:: HP, EX3 Assessment: Patient progressing well with strengthening exercise. Patient Education: Body/Joint mechanics, Home Exercise Program, Activity Modification Patient demonstrates compliance with HEP?: Yes Short Term Goals Goal #1: Pt independent and compliant with HEP. Goal to be met by: 08/22/16 (100%) Progress towards Goal:: Met Goal #2: Right shoulder PROM WFL's. Goal to be met by: 08/22/16 (100%) Progress towards Goal:: Met Goal #3: Pt to demonstrate improved postural awareness. 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 Goal to be met by: 10/07/16 (50%) Progress towards goal: Progressing Goal #2: Right shoulder AROM WFL's to perform all selfcare and ADL's. Goal to be met by: 10/07/16 (50%) Progress towards goal: Progressing Goal #3: Score on UE functional scale improved to <39% impairment. Goal to be met by: 10/07/16 (50%) Progress towards goal: Progressing Goal #4: Patient able to use Right UE for daily activities with minimal to no pain. Goal to be met by: 10/07/16 (70%) Progress towards goal: Progressing Plan PLAN OF CARE EXPIRES ON:: 10/07/16 ORDER # VISITS AND/OR THROUGH DATE: 10/07/16 PLAN: Continue Plan of Care
--- NOTE | 2016-09-17 11:26 | RS.OPPTDN ---
Subjective Date of Note: 09/17/16 Visit #: 15 Date of Evaluation: 08/08/16 Payer Source: MEDICARE Treatment Diagnosis: Right shoulder pain, right shoulder stiffness, s/p Right Reverse TSR Current Subjective/complaints:: Patient reports continued improvement in use of right UE with daily activities. States she can now reach the back of her head to fix her hair with the right hand. Pain Assessment - Pain Description Pain Location: Right shoulder Pain Description: Aching Current Pain Intensity: mild - Heat/Cryotherapy Treatment: Hot Pack ([id number] to the right shoulder prior to EX. Patient in supine. ) Interventions - Exercise/Activities/Manual Therapy Exercises/Activities: [id number] Patient received PROM in supine into right shoulder flexion, scaption, abduction, and limited IR and ER in pain-free range. Isometrics for biceps, triceps, IR, ER, shoulder extension, adduction, extension, and abduction. Green theraband for right shoulder flexion, chest press, biceps, and triceps. Red theraband for short flexion and IR/ER. In sitting, 3# wand for shoulder flexion. Active and AAROM of the right shoulder. 1# dumbell for full shoulder flexion and limited abduction. 2# dumbell for flexion, scaption, and abdcution to 90 degrees. Red theraband for right scap retraction and chest press. Reaching for 1 and 2# therapy balls. Reviewed towel behind back for gentle IR stretching. Total minutes of Exercise: 40mins Manual Therapy: NA HOME EXERCISE PROGRAM: Pendulum exercises, scapular retraction, active elbow and wrist ROM. Isometric shoulder add and ext in neutral. Wand for chest press , short overhead flexion, and IR/ER in supine. Clasped hands for shoulder flexion from 90 degrees to overhead in supine. Ball on the wall. - Objective Findings Observations,measurements,etc.: Active flexion to 134 degrees today following exercise session. - Charges Total Direct Minutes: 40mins Total Treatment Time: 60mins Procedures billed for this date of service:: HP, EX3 Assessment: Patient progressing well with functional use of the right UE. Patient Education: Body/Joint mechanics, Home Exercise Program, Home Safety Patient demonstrates compliance with HEP?: Yes Short Term Goals Goal #1: Pt independent and compliant with HEP. Goal to be met by: 08/22/16 (100%) Progress towards Goal:: Met Goal #2: Right shoulder PROM WFL's. Goal to be met by: 08/22/16 (100%) Progress towards Goal:: Met Goal #3: Pt to demonstrate improved postural awareness. Goal to be met by: 08/22/16 (80%) Progress towards Goal:: Progressing [facility] Goals Goal #1: Pt knows HEP and to continue Ex's to maintain functional level at D/C. Goal to be met by: 10/07/16 (50%) Progress towards goal: Progressing Goal #2: Right shoulder AROM WFL's to perform all selfcare and ADL's. Goal to be met by: 10/07/16 (50%) Progress towards goal: Progressing Goal #3: Score on UE functional scale improved to <39% impairment. Goal to be met by: 10/07/16 (50%) Progress towards goal: Progressing Goal #4: Patient able to use Right UE for daily activities with minimal to no pain. Goal to be met by: 10/07/16 (70%) Progress towards goal: Progressing Plan PLAN OF CARE EXPIRES ON:: 10/07/16 ORDER # VISITS AND/OR THROUGH DATE: 10/07/16 PLAN: Continue Plan of Care
== END 2016-09-18 ==
PROVIDERS: ATTEND Orthopaedic Surgery
DX: M12.811 Other specific arthropathies, not elsewhere classified, right shoulder (principal)

== ENCOUNTER 2016-10-03 09:00 | Outpatient (RCR) ==
--- NOTE | 2016-09-19 11:21 | RS.OPPTDN ---
Subjective Date of Note: 09/19/16 Visit #: 16 Date of Evaluation: 08/08/16 Payer Source: MEDICARE Treatment Diagnosis: Right shoulder pain, right shoulder stiffness, s/p Right Reverse TSR Current Subjective/complaints:: Patient reports continued improvement in active motion and reaching with daily activities at home. Reports she feels better and has better mobility following exercise. Pain Assessment - Pain Description Pain Location: Right shoulder Current Pain Intensity: mild - Heat/Cryotherapy Treatment: Hot Pack ([id number] to the right shoulder prior to ) Interventions - Exercise/Activities/Manual Therapy Exercises/Activities: [id number] Patient received PROM in supine into right shoulder flexion, scaption, abduction, and limited IR and ER in pain-free range. Isometrics for biceps, triceps, IR, ER, shoulder extension, adduction, extension, and abduction. Green theraband for right shoulder flexion, chest press, biceps, and triceps. In sitting, increased to 4# wand for shoulder flexion. Active and AAROM of the right shoulder. 1# dumbell for full shoulder flexion and limited abduction. 2# dumbell for flexion, scaption, and abdcution to 90 degrees. Red theraband for right scap retraction and chest press. Reaching for 1 and 2# therapy balls. Ball on wall with small 2# therapy ball today. Total minutes of Exercise: 40mins Manual Therapy: NA HOME EXERCISE PROGRAM: Pendulum exercises, scapular retraction, active elbow and wrist ROM. Isometric shoulder add and ext in neutral. Wand for chest press , short overhead flexion, and IR/ER in supine. Clasped hands for shoulder flexion from 90 degrees to overhead in supine. Ball on the wall. - Charges Total Direct Minutes: 40mins Total Treatment Time: 60mins Procedures billed for this date of service:: HP, US, EX Assessment: Patient progressing well with functional activities. Patient Education: Home Exercise Program Patient demonstrates compliance with HEP?: Yes Short Term Goals Goal #1: Pt independent and compliant with HEP. Goal to be met by: 08/22/16 (100%) Progress towards Goal:: Met Goal #2: Right shoulder PROM WFL's. Goal to be met by: 08/22/16 (100%) Progress towards Goal:: Met Goal #3: Pt to demonstrate improved postural awareness. 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 Goal to be met by: 10/07/16 (50%) Progress towards goal: Progressing Goal #2: Right shoulder AROM WFL's to perform all selfcare and ADL's. Goal to be met by: 10/07/16 (50%) Progress towards goal: Progressing Goal #3: Score on UE functional scale improved to <39% impairment. Goal to be met by: 10/07/16 (50%) Progress towards goal: Progressing Goal #4: Patient able to use Right UE for daily activities with minimal to no pain. Goal to be met by: 10/07/16 (70%) Progress towards goal: Progressing Plan PLAN OF CARE EXPIRES ON:: 10/07/16 ORDER # VISITS AND/OR THROUGH DATE: 10/07/16 PLAN: Continue Plan of Care
--- NOTE | 2016-09-23 10:49 | RS.OPPTDN ---
Subjective Date of Note: 09/23/16 Visit #: 17 Date of Evaluation: 08/08/16 Payer Source: MEDICARE Treatment Diagnosis: Right shoulder pain, right shoulder stiffness, s/p Right Reverse TSR Current Subjective/complaints:: Patient reports continued improvement in right shoulder ROM and use with active reaching at home. Pain Assessment - Pain Description Pain Location: Right shoulder Current Pain Intensity: mild - Heat/Cryotherapy Treatment: Hot Pack ([id number] to the right shoulder prior to EX. Patient in supine. ) Interventions - Exercise/Activities/Manual Therapy Exercises/Activities: [id number]. PROM in supine into right shoulder flexion, scaption, abduction, and limited IR and ER in pain-free range. Isometrics for biceps, triceps, IR, ER, shoulder extension, adduction, extension, and abduction. In sitting, began with 3# wand and increased to 5# wand for shoulder flexion. Active and AAROM of the right shoulder. 1# therapy ball for full shoulder flexion, scaption, and abduction, multiple reps. Then 2# ball for flexion, scaption, and abduction to 90 degrees. Cable pulleys for scap retraction 20#, slow pace 25reps. Reaching for 1 and 2# therapy balls. Ball on wall overhead. Total minutes of Exercise: 45mins Manual Therapy: NA HOME EXERCISE PROGRAM: Pendulum exercises, scapular retraction, active elbow and wrist ROM. Isometric shoulder add and ext in neutral. Wand for chest press , short overhead flexion, and IR/ER in supine. Clasped hands for shoulder flexion from 90 degrees to overhead in supine. Ball on the wall. - Charges Total Direct Minutes: 45mins Total Treatment Time: 65mins Procedures billed for this date of service:: HP, EX3 Assessment: Patient progressing well with Short Term Goals Goal #1: Pt independent and compliant with HEP. Goal to be met by: 08/22/16 (100%) Progress towards Goal:: Met Goal #2: Right shoulder PROM WFL's. Goal to be met by: 08/22/16 (100%) Progress towards Goal:: Met Goal #3: Pt to demonstrate improved postural awareness. 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 Goal to be met by: 10/07/16 (75%) Progress towards goal: Progressing Goal #2: Right shoulder AROM WFL's to perform all selfcare and ADL's. Goal to be met by: 10/07/16 (70%) Progress towards goal: Progressing Goal #3: Score on UE functional scale improved to <39% impairment. Goal to be met by: 10/07/16 (50%) Progress towards goal: Progressing Goal #4: Patient able to use Right UE for daily activities with minimal to no pain. Goal to be met by: 10/07/16 (80%) Progress towards goal: Progressing Plan PLAN OF CARE EXPIRES ON:: 10/07/16 ORDER # VISITS AND/OR THROUGH DATE: 10/07/16 PLAN: Continue Plan of Care (continue to progress strengthening exercise to increase functional activity level.)
--- NOTE | 2016-09-25 14:47 | RS.OPPTDN ---
Subjective Date of Note: 09/25/16 Visit #: 18 Date of Evaluation: 08/08/16 Payer Source: MEDICARE Treatment Diagnosis: Right shoulder pain, right shoulder stiffness, s/p Right Reverse TSR Current Subjective/complaints:: Patient reports she continues to progress with active reaching with light daily activities. Pain Assessment - Pain Description Pain Location: Right shoulder Current Pain Intensity: mild - Heat/Cryotherapy Treatment: Hot Pack ([id number] to the right shoulder prior to EX. Patient in supine. ) Interventions - Exercise/Activities/Manual Therapy Exercises/Activities: [id number]. PROM in supine into right shoulder flexion, scaption, abduction, and limited IR and ER in pain-free range. Isometrics for biceps, triceps, IR, ER, shoulder extension, adduction, extension, and abduction. In sitting, 3# wand and 5# wand for shoulder flexion. Active and AAROM of the right shoulder. Worked on eccentric contractions of flexors with right shoulder extension. 1# therapy ball for full shoulder flexion, scaption, and abduction, multiple reps. Chest passing with medium therapy ball. Total minutes of Exercise: 40mins Manual Therapy: NA HOME EXERCISE PROGRAM: Pendulum exercises, scapular retraction, active elbow and wrist ROM. Isometric shoulder add and ext in neutral. Wand for chest press , short overhead flexion, and IR/ER in supine. Clasped hands for shoulder flexion from 90 degrees to overhead in supine. Ball on the wall. - Charges Total Direct Minutes: 40mins Total Treatment Time: 60mins Procedures billed for this date of service:: HP, EX3 Assessment: Patient progressing well with reaching activities at home and with progressive strengthening. Patient Education: Body/Joint mechanics, Home Exercise Program Patient demonstrates compliance with HEP?: Yes Short Term Goals Goal #1: Pt independent and compliant with HEP. Goal to be met by: 08/22/16 (100%) Progress towards Goal:: Met Goal #2: Right shoulder PROM WFL's. Goal to be met by: 08/22/16 (100%) Progress towards Goal:: Met Goal #3: Pt to demonstrate improved postural awareness. 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 Goal to be met by: 10/07/16 (75%) Progress towards goal: Progressing Goal #2: Right shoulder AROM WFL's to perform all selfcare and ADL's. Goal to be met by: 10/07/16 (70%) Progress towards goal: Progressing Goal #3: Score on UE functional scale improved to <39% impairment. Goal to be met by: 10/07/16 (50%) Progress towards goal: Progressing Goal #4: Patient able to use Right UE for daily activities with minimal to no pain. Goal to be met by: 10/07/16 (80%) Progress towards goal: Progressing Plan PLAN OF CARE EXPIRES ON:: 10/07/16 ORDER # VISITS AND/OR THROUGH DATE: 10/07/16 PLAN: Continue Plan of Care
--- NOTE | 2016-09-30 10:50 | RS.OPPTDN ---
Subjective Date of Note: 09/30/16 Visit #: 19 Date of Evaluation: 08/08/16 Payer Source: MEDICARE Treatment Diagnosis: Right shoulder pain, right shoulder stiffness, s/p Right Reverse TSR Current Subjective/complaints:: Patient continues to report progress with AROM with exercise and with functional activities at home. Pain Assessment - Pain Description Pain Location: Right shoulder Current Pain Intensity: mild - Heat/Cryotherapy Treatment: Hot Pack ([id number] to the right shoulder prior to EX. Patient in supine. ) Interventions - Exercise/Activities/Manual Therapy Exercises/Activities: [id number]. PROM in supine into right shoulder flexion, scaption, abduction, and limited IR and ER in pain-free range. Isometrics for biceps, triceps, IR, ER, shoulder extension, adduction, extension, and abduction. Red theraband for biceps curl, short shoulder extension, chest press. In sitting, 3# wand for shoulder flexion. Active and AAROM of the right shoulder. Worked on eccentric contractions of flexors with right shoulder extension. 1# dumbell for flexion and scaption overhead, and 2# for flexion and scaption to shoulder height. 1 and 2# therapy ball for full shoulder flexion, scaption, and abduction, multiple reps. Red theraband for right scapular retraction. Chest passing with medium therapy ball. Total minutes of Exercise: 40mins Manual Therapy: NA HOME EXERCISE PROGRAM: Pendulum exercises, scapular retraction, active elbow and wrist ROM. Isometric shoulder add and ext in neutral. Wand for chest press , short overhead flexion, and IR/ER in supine. Clasped hands for shoulder flexion from 90 degrees to overhead in supine. Ball on the wall. - Objective Findings Observations,measurements,etc.: Active right shoulder flexion to 168-170 degrees. - Charges Total Direct Minutes: 40mins Total Treatment Time: 60mins Procedures billed for this date of service:: HP, EX3 Assessment: Patient progressing well with AROM and strengthening with exercise and with functional activities at home. Patient Education: Education of diagnosis, Body/Joint mechanics, Home Exercise Program Patient demonstrates compliance with HEP?: Yes Short Term Goals Goal #1: Pt independent and compliant with HEP. Goal to be met by: 08/22/16 (100%) Progress towards Goal:: Met Goal #2: Right shoulder PROM WFL's. Goal to be met by: 08/22/16 (100%) Progress towards Goal:: Met Goal #3: Pt to demonstrate improved postural awareness. Goal to be met by: 08/22/16 (100%) Progress towards Goal:: Met Cell Tuber Hand Goals Goal #1: Pt knows HEP and to continue Ex's to maintain functional level at D/C. Goal to be met by: 10/07/16 (75%) Progress towards goal: Progressing Goal #2: Right shoulder AROM WFL's to perform all selfcare and ADL's. Goal to be met by: 10/07/16 (100%) Progress towards goal: Met Goal #3: Score on UE functional scale improved to <39% impairment. Goal to be met by: 10/07/16 (50%) Progress towards goal: Progressing Goal #4: Patient able to use Right UE for daily activities with minimal to no pain. Goal to be met by: 10/07/16 (80%) Progress towards goal: Progressing Plan PLAN OF CARE EXPIRES ON:: 10/07/16 ORDER # VISITS AND/OR THROUGH DATE: 10/07/16 PLAN: Continue Plan of Care (Continue and progress exercise to increase functional activity level.)
--- NOTE | 2016-10-03 13:59 | RS.OPPTDN ---
Subjective Date of Note: 10/03/16 Visit #: 20 Date of Evaluation: 08/08/16 Payer Source: MEDICARE Treatment Diagnosis: Right shoulder pain, right shoulder stiffness, s/p Right Reverse TSR Current Subjective/complaints:: Patient reports she has progressed well and is able to perform most light to moderate ADL's. Reports she has a partial fall and caught herself with the right UE to avoid falling to ground. States she has mild soreness at the upper right arm, but it does not limit her ability to perform active reaching. She agrees to continue HEP following discharge. Pain Assessment - Pain Description Pain Location: Right shoulder Current Pain Intensity: mild with some movements Other Comments regarding Pain:: Reports she is able to perform most light daily activities without increased discomfort. - Heat/Cryotherapy Treatment: Hot Pack ([id number] to the right shoulder joint prior to EX. Patient in supine. ) Interventions - Exercise/Activities/Manual Therapy Exercises/Activities: [id number]. PROM in supine into right shoulder flexion, scaption, abduction, and limited IR and ER in pain-free range. Isometrics for biceps, triceps, IR, ER, shoulder extension, adduction, extension, and abduction. Red theraband for biceps curl, short shoulder extension, chest press. In sitting, 3# wand for shoulder flexion. Active and AAROM of the right shoulder. Worked on eccentric contractions of flexors with right shoulder extension. 1# dumbell for flexion and scaption overhead, and 2# for flexion and scaption to shoulder height. 1 and 2# therapy ball for full shoulder flexion, scaption, and abduction, multiple reps. Green theraband for scapular retraction. Total minutes of Exercise: 42mins Manual Therapy: NA HOME EXERCISE PROGRAM: Pendulum exercises, scapular retraction, active elbow and wrist ROM. Isometric shoulder add and ext in neutral. Wand for chest press , short overhead flexion, and IR/ER in supine. Clasped hands for shoulder flexion from 90 degrees to overhead in supine. Ball on the wall. - Objective Findings Observations,measurements,etc.: Patient demos AROM WFL. Demos right shoulder flexion and abduction 4- to 4/5 MMT and extension and adduction 4+/5 MMT. - Charges Total Direct Minutes: 42mins Total Treatment Time: 62mins Procedures billed for this date of service:: HP, EX3 Assessment: Patient has progressed well with strength and ROM of the right shoulder. She has met all treatment goals and is independent with HEP. Patient Education: Body/Joint mechanics, Home Exercise Program, Activity Modification, Education of Plan of Care Patient demonstrates compliance with HEP?: Yes Short Term Goals Goal #1: Pt independent and compliant with HEP. Goal to be met by: 08/22/16 (100%) Progress towards Goal:: Met Goal #2: Right shoulder PROM WFL's. Goal to be met by: 08/22/16 (100%) Progress towards Goal:: Met Goal #3: Pt to demonstrate improved postural awareness. Goal to be met by: 08/22/16 (100%) Progress towards Goal:: Met Mcfp Goals Goal #1: Pt knows HEP and to continue Ex's to maintain functional level at D/C. Goal to be met by: 10/07/16 (100%) Progress towards goal: Met Goal #2: Right shoulder AROM WFL's to perform all selfcare and ADL's. Goal to be met by: 10/07/16 (100%) Progress towards goal: Met Goal #3: Score on UE functional scale improved to <39% impairment. Goal to be met by: 10/07/16 (100%) Progress towards goal: Met Goal #4: Patient able to use Right UE for daily activities with minimal to no pain. Goal to be met by: 10/07/16 (100%) Progress towards goal: Met Plan PLAN OF CARE EXPIRES ON:: 10/07/16 ORDER # VISITS AND/OR THROUGH DATE: 10/07/16 PLAN: Plan for Discharge (Discharge with HEP due to good progress.)
== END 2016-10-18 ==
PROVIDERS: ATTEND Orthopaedic Surgery
DX: M12.811 Other specific arthropathies, not elsewhere classified, right shoulder (principal)